=== PATIENT | female | born 1995 | race Hispanic/Latino ===

== ENCOUNTER 2022-11-28 08:08 | Inpatient (IN) | payer MEDICAID, SELFPAY ==
[2022-11-28] MEDS ORDERED: NS w/ Oxytocin 30 units 500 ML ONE (08:44)
[2022-11-28 08:50] VITALS: BMI 39.4
[2022-11-28] MEDS ORDERED: Methylergonovine 0.2 MG/ML VIAL IM PRN (08:55)
[2022-11-28] MEDS ORDERED: Carboprost 250 MCG/ML AMP IM PRN (08:55)
[2022-11-28] MEDS ORDERED: Misoprostol 200 MCG TAB PR PRN (08:55)
[2022-11-28] MEDS ORDERED: Lidocaine 1% (PF) 30 ML VIAL SC PRN (08:55)
[2022-11-28] MEDS ORDERED: hydrALAZINE 20 MG/ML VIAL SLOW IVP PRN ×3 (08:55→11:08)
[2022-11-28] MEDS ORDERED: Diphenoxylate HCl/Atropine Tablet PO PRN (08:55)
[2022-11-28] MEDS ORDERED: NS w/ Oxytocin 30 units 500 ML IV SCH (09:00)
[2022-11-28] MEDS ORDERED: Misoprostol 200 MCG TAB ONE (09:45)
[2022-11-28] MEDS ORDERED: Butorphanol Tartrate 1 MG/ML VIAL ONE (09:46)
[2022-11-28] MEDS ORDERED: Promethazine HCl 25 MG/ML VIAL IM PRN (09:52)
[2022-11-28] MEDS ORDERED: Ondansetron PF 4 MG/2 ML Vial IVP PRN (09:52)
[2022-11-28 10:44] LABS: Hemoglobin 11.5 g/dL (12.0-15.5); Mean Corpuscular HGB CONC 32.4 g/dL (32.0-36.0); Mean Corpuscular Hemoglobin 24.7 pg (27.0-33.0); Mean Corpuscular Volume 76.3 fl (81.6-98.3); Mean Platelet Volume 11.9 fl (7.4-10.4); Platelet Count 190 10x3/uL (150-450); Red Blood Cell (RBC) Count 4.65 10x6/uL (3.90-5.03); White Blood Cell (WBC) Count 14.3 10x3/uL (3.5-10.5)
[2022-11-28] MEDS ORDERED: Benzocaine-Menthol 82.5 ML CAN TOP PRN (11:08)
[2022-11-28] MEDS ORDERED: Bisacodyl 10 MG SUPP PR PRN (11:08)
[2022-11-28] MEDS ORDERED: diphenhydrAMINE 25 MG CAP PO PRN (11:08)
[2022-11-28] MEDS ORDERED: Milk Of Magnesia 30 ML UDCUP PO PRN (11:08)
[2022-11-28] MEDS ORDERED: Lanolin Ointment 7 GM TUBE TOP PRN (11:08)
[2022-11-28] MEDS ORDERED: Preparation H Ointment 28 GM TUBE PR PRN (11:08)
[2022-11-28] MEDS ORDERED: Boostrix 0.5 ML (Tdap) VIAL (>/=7 yrs of age) IM ONE (11:08)
[2022-11-28 11:11] LABS: Syphilis Antibody Nonreactive (Nonreactive); Syphilis Antibody Index 0.04 S/CO (<1.00 Non-Reactive)
[2022-11-28 11:13] LABS: HBSAg Index 0.17 S/CO (0-0.99); Hep B Surf Ag Non-Reactive S/CO (NonReactive)
[2022-11-28] MEDS: Acetaminophen 500 MG TAB PO PRN ×2 (11:47→20:16)
[2022-11-28 12:16] LABS: SARS-CoV-2 NAA Rapid Test Not Detected (NotDetected)
[2022-11-28] MEDS: Lactated Ringer's 1,000 ML IV SCH ×2 (12:22→13:56)
[2022-11-28] MEDS: Ferrous Sulfate 325 MG TAB PO SCH (13:56)
[2022-11-28] MEDS: Ibuprofen 800 MG TAB PO PRN ×2 (14:04→21:55)
[2022-11-28] MEDS: Docusate 100 MG CAP PO SCH (21:55)
[2022-11-29] MEDS: Acetaminophen 500 MG TAB PO PRN (05:15)
[2022-11-29] MEDS: Ibuprofen 800 MG TAB PO PRN ×2 (05:16→14:09)
[2022-11-29] MEDS: Lactated Ringer's 1,000 ML IV SCH ×2 (07:21→08:25)
[2022-11-29] MEDS: Ferrous Sulfate 325 MG TAB PO SCH (07:24)
[2022-11-29 07:40] VITALS: BP 91/57; TEMP 98.2
[2022-11-29] MEDS: Docusate 100 MG CAP PO SCH (08:26)
[2022-11-29] MEDS ORDERED: Prenatal Vitamin 1 TAB PO SCH (09:00)
== END 2022-11-29 14:35 | disposition home or self-care (01) | DRG 807 ==
LOC: CSHLD/OP 08:08 → CSHLD 08:37 → CSHPED 12:00
PROVIDERS: ADMIT Obstetrics & Gynecology; ATTEND Obstetrics & Gynecology
PROC: 10E0XZZ Delivery of Products of Conception, External Approach (ICD-10-PCS; principal; 2022-11-28)
DX: O99.214 Obesity complicating childbirth (principal); Z37.0 Single live birth; Z20.822 Contact with and (suspected) exposure to COVID-19; Z3A.40 40 weeks gestation of pregnancy; Z79.899 Other long term (current) drug therapy; O70.0 First degree perineal laceration during delivery
CPT/HCPCS: 36415; 85027; 86780; 86850; 86900; 86901; 87340; U0002